=== PATIENT | female | born 1955 | race Caucasian/White ===

== ENCOUNTER 2016-05-16 09:24 | Inpatient (IN) | payer BC, OTHER ==
[2016-05-16] VITALS (21 sets, daily range): BP systolic 82–139; BP diastolic 54–92
[~2016-05-16] VITALS: Ht 157.5 cm; Wt 72.3 kg
--- OUTSIDE RECORDS SUMMARY | 2016-05-16 09:32 | XMS REPORT | Continuity of Care Document ---
Demographics Preferred Language Unknown Marital Status Unknown Shinto Affiliation Unknown Race Unknown Ethnic Group Unknown Author Author [facility] Organization [facility] Address Unknown Phone Unavailable Allergies Active Description Code Type Severity Reaction Onset Reported/Identified Relationship to Patient Clinical Status Yes aspirin 1587 Drug Allergy N/A Nausea Medications Problems Procedures Results Encounters ACCT No. Visit Date/Time Discharge Status Pt. Type Provider Facility Loc./Unit Complaint [id number] 04/20/2015 08:50:00 04/20/2015 13 :45:00 DIS Inpatient DORA BO
[2016-05-16 10:47] LABS: BASOPHILS % (AUTO) 0 % (0-10); EOSINOPHILS # (AUTO) 0.1 10^3/uL (0.0-0.3); EOSINOPHILS % (AUTO) 1 % (0-10); LYMPHOCYTES # (AUTO) 3.1 X 10^3 (1.0-4.0); LYMPHOCYTES % (AUTO) 33 % (12-44); MEAN CORPUSCULAR HEMOGLOBIN 30 PG (25-34); MEAN CORPUSCULAR HGB CONC 33 G/DL (32-36); MEAN CORPUSCULAR VOLUME 93 FL (80-99); MEAN PLATELET VOLUME 11.2 FL (7.4-10.4); MONOCYTES # (AUTO) 0.9 X 10^3 (0.0-1.0); MONOCYTES % (AUTO) 9 % (0-12); NEUTROPHILS # (AUTO) 5.3 X 10^3 (1.8-7.8); NEUTROPHILS % (AUTO) 57 % (42-75); PLATELET COUNT 329 10^3/uL (130-400); RED BLOOD COUNT 3.33 10^6/uL (4.35-5.85); RED CELL DISTRIBUTION WIDTH 14.3 % (10.0-14.5); WHITE BLOOD COUNT 9.4 10^3/uL (4.3-11.0)
--- NOTE | 2016-05-16 10:48 | ED GI ---
General Chief Complaint: Rect Problems Stated Complaint: ABD PAIN/CRAMPING RECTAL BLEEDING Source of Information: Patient, Family History of Present Illness Time Seen By Provider: 10:45 Initial Comments This 60-year-old white female presents with a 4 day history of black and tarry stools now with passing of large blood clots frequently. Patient is having orthostatic symptoms as well. She had a CT done within the last year the results of which were largely unremarkable but the details of which are unclear to the patient. She denies any bleeding abnormality. She denies any new anticoagulants or significant oxur-hyc-irolruq nonsteroidals. Allergies and Home Medications Allergies Coded Allergies: No Known Drug Allergies (Unverified , 05/16/16) Review of Systems Constitutional: No chills, No fever EENTM: No Eye Pain Respiratory: Denies Cough Cardiovascular: Denies Chest Pain Gastrointestinal: Abdominal Pain (mid epigastric abdominal pain) DiarrheaDenies Nausea, Rectal Bleeding (originally black stools now bright red with clots) Genitourinary: No Symptoms Reported Musculoskeletal: No back pain Skin: No rash Psychiatric/Neurological: No Symptoms Reported Endocrine: No Symptoms Reported Hematologic/Lymphatic: No Symptoms Reported Past Qopitmp-Klfdqc-Bpqyst Hx Patient Social History Alcohol Use: Rarely Uses Recreational Drug Use: No Smoking Status: Never a Smoker 2nd Hand Smoke Exposure: No Recent Foreign Travel: No Contact w/Someone Who Travel: No Recent Hopitalizations: No Surgeries HX Surgeries: Yes (EGD AND COLONOSCOPY) Surgeries: Abdominal, Appendectomy, Gallbladder, Hysterectomy, Orthopedic, Tubal Ligation Respiratory Hx Respiratory Disorders: No Cardiovascular Hx Cardiac Disorders: No Neurological Hx Neurological Disorders: No Reproductive System Hx Reproductive Disorders: No Sexually Transmitted Disease: No HIV/AIDS: No Genitourinary Hx Genitourinary Disorders: No Gastrointestinal Hx Gastrointestinal Disorders: No Musculoskeletal Hx Musculoskeletal Disorders: No Endocrine Hx Endocrine Disorders: No HEENT HX ENT Disorders: No Cancer Hx Cancer: No Psychosocial Hx Psychiatric Problems: Yes Behavioral Health Disorders: Anxiety, Depression Blood Transfusions Hx Blood Disorders: No Reviewed Nursing Assessment Reviewed/Agree w Nursing PMH: Yes Physical Exam Vital Signs VS - Last 72 Hours, by Label 05/16/16 10:15 Temp 99.3 Pulse 101 Resp 16 B/P 102/78 Pulse Ox 96 O2 Delivery Room Air Capillary Refill : General Appearance: WD/WN mild distress HEENT: normal ENT inspection Neck: full range of motion normal inspection Respiratory: lungs clear normal breath sounds no respiratory distress Cardiovascular: regular rate, rhythm Gastrointestinal: normal bowel sounds tenderness (there was moderate tenderness in the midepigastric area.) Rectal: other (maroon-colored guaiac-positive stool is noted on rectal exam. No masses were appreciated.) Extremities: normal range of motion non-tender normal inspection Back: normal inspection Neurologic/Psychiatric: no motor/sensory deficits alert normal mood/affect oriented x 3 Skin: normal color warm/dry Progress/Results/Core Measures Results/Orders Lab Results Laboratory Tests Test 05/16/16 10:25 Range/Units Alanine Aminotransferase (ALT/SGPT) 34 0-55 U/L Albumin 3.6 3.2-4.5 G/DL Alkaline Phosphatase 66 40-136 U/L Anion Gap 11 5-14 MMOL/L Aspartate Amino Transf (AST/SGOT) 19 5-34 U/L BUN/Creatinine Ratio 52 Basophils # (Auto) 0.0 0.0-0.1 10^3/uL Basophils (%) (Auto) 0 0-10 % Blood Urea Nitrogen 38 H 7-18 MG/DL Calcium Level 8.5 8.5-10.1 MG/DL Carbon Dioxide Level 20 L 21-32 MMOL/L Chloride Level 112 H 98-107 MMOL/L Creatinine 0.73 0.60-1.30 MG/DL Eosinophils # (Auto) 0.1 0.0-0.3 10^3/uL Eosinophils (%) (Auto) 1 0-10 % Estimat Glomerular Filtration Rate > 60 Glucose Level 83 70-105 MG/DL Hematocrit 31 L 35-52 % Hemoglobin 10.1 L 11.5-16.0 G/DL INR Comment 1.0 0.8-1.4 Lymphocytes # (Auto) 3.1 1.0-4.0 X 10^3 Lymphocytes (%) (Auto) 33 12-44 % Mean Corpuscular Hemoglobin 30 25-34 PG Mean Corpuscular Hemoglobin Concent 33 32-36 G/DL Mean Corpuscular Volume 93 80-99 FL Mean Platelet Volume 11.2 H 7.4-10.4 FL Monocytes # (Auto) 0.9 0.0-1.0 X 10^3 Monocytes (%) (Auto) 9 0-12 % Neutrophils # (Auto) 5.3 1.8-7.8 X 10^3 Neutrophils (%) (Auto) 57 42-75 % Platelet Count 329 130-400 10^3/uL Potassium Level 4.4 3.6-5.0 MMOL/L Prothrombin Time 12.9 12.2-14.7 SEC Red Blood Count 3.33 L 4.35-5.85 10^6/uL Red Cell Distribution Width 14.3 10.0-14.5 % Sodium Level 143 135-145 MMOL/L Total Bilirubin 0.3 0.1-1.0 MG/DL Total Protein 6.1 L 6.4-8.2 G/DL White Blood Count 9.4 4.3-11.0 10^3/uL My Orders Orders-MIGUEL CASTLE MD Cbc With Automated Diff (05/16/16 10:38) Red Cells Leukocytes Reduced (05/16/16 10:38) Comprehensive Metabolic Panel (05/16/16 10:38) Protime With Inr (05/16/16 10:38) Type And Screen (05/16/16 10:38) Ct Abdomen/Pelvis Wo (05/16/16 10:44) Fecal Occult Bedside (05/16/16 10:48) Saline Lock/Iv-Start (05/16/16 11:03) Fentanyl Injection (Sublimaze Injection (05/16/16 11:45) Ondansetron Injection (Zofran Injectio (05/16/16 11:58) Saline Lock/Iv-Start (05/16/16 12:08) Medications Given in ED Current Medications Medications Dose Ordered Sig/Jeni Route Start Time Stop Time Status Last Admin Dose Admin Fentanyl Citrate 50 mcg Q1H PRN IVP 05/16/16 11:45 05/16/16 11:38 50 MCG Ondansetron HCl 4 mg STK-MED ONCE .ROUTE 05/16/16 11:58 05/16/16 11:59 DC 05/16/16 12:00 4 MG Vital Signs/I&O Vital Sign - Last 12Hours 05/16/16 10:15 Temp 99.3 Pulse 101 Resp 16 B/P 102/78 Pulse Ox 96 O2 Delivery Room Air Progress Note : Time: 12:13 Progress Note The patient's CT of the abdomen and pelvis demonstrated diverticulosis with no evidence of acute diverticulitis. Patient had a syncopal episode when she went to have a bloody BM. The patient responded to Trendelenburg positioning. A second IV was established. 2 units of blood have been ordered. 2 units of whole blood been ordered. 2 units have been typed and crossed and reserved. Dr. Hull will see the patient upstairs shortly for probable EGD. Departure Communication Time/Spoke to Admitting Phy: 12:[address] Hull Impression Impression: Primary Impression: GI bleed Qualified Code: K92.1 - Melena Disposition: ADMITTED INPATIENT Condition: Improved Decision to Admit Reason: Admit from ER (General) Decision to Admit/Date: May 16, 2016 Time/Decision to Admit Time: 12:15 Departure-Patient Inst. Referrals: NO,LOCAL PHYSICIAN (PCP/Family) Primary Care Physician MIGUEL CASTLE MD May 16, 2016 10:48
[2016-05-16 10:51] LABS: PROTHROMBIN TIME PATIENT 12.9 SEC (12.2-14.7)
[2016-05-16 10:57] LABS: ALANINE AMINOTRANSFERASE 34 U/L (0-55); ALBUMIN 3.6 G/DL (3.2-4.5); ANION GAP 11 MMOL/L (5-14); ASPARTATE AMINO TRANSFERASE 19 U/L (5-34); BILIRUBIN,TOTAL 0.3 MG/DL (0.1-1.0); BLOOD UREA NITROGEN 38 MG/DL (7-18); BUN/CREATININE RATIO 52; CALCIUM 8.5 MG/DL (8.5-10.1); CARBON DIOXIDE 20 MMOL/L (21-32); CHLORIDE 112 MMOL/L (98-107); CREATININE SERUM 0.73 MG/DL (0.60-1.30); GFR ESTIMATED > 60; GLUCOSE 83 MG/DL (70-105); POTASSIUM 4.4 MMOL/L (3.6-5.0); SODIUM 143 MMOL/L (135-145); TOTAL PROTEIN 6.1 G/DL (6.4-8.2)
--- NOTE | 2016-05-16 11:20 | Diagnostic Imaging Report ---
PROCEDURE: CT abdomen and pelvis without contrast. TECHNIQUE: Multiple contiguous axial images were obtained through the abdomen and pelvis without the use of intravenous contrast. INDICATION: Abdominal pain and cramping. FINDINGS: The lung bases appear clear. The liver demonstrates hypodense lesion in the left hepatic lobe measuring 1.3 cm with attenuation suggestive of a cyst. Cholecystectomy clips are seen. The spleen is not enlarged. Surgical clips along the gastroesophageal junction are seen. The pancreas and adrenal glands appear unremarkable for an unenhanced exam. The kidneys demonstrate no stones or hydronephrosis. No urinary tract stones. Multiple calcifications in the pelvis are compatible with phleboliths. There is suggestion of prior hysterectomy. Multiple sigmoid diverticulosis seen. No evidence of diverticulitis. No bowel obstruction. The appendix is not seen. The abdominal aorta is normal in caliber. No para-aortic significantly enlarged lymph node. There is no significant free fluid or fluid collection in the abdomen or pelvis. There is a small fat-containing direct left inguinal hernia. The osseous structures demonstrate degenerative changes of lower lumbar spine and SI joints. IMPRESSION: 1. Diverticulosis. No diverticulitis. 2. No urinary tract stones or hydronephrosis. Dictated by: Dictated on workstation # [id number]
[2016-05-16] MEDS ORDERED: fentaNYL INJECTION 100 MCG/2 ML AMP IVP PRN (11:45)
[2016-05-16] MEDS ORDERED: ONDANSETRON 4 MG/2 ML (SDV) Z0FRAN ONE (11:58)
[2016-05-16] MEDS ORDERED: LACTATED RINGERS 1,000 ML IV ONE ×2 (12:37→12:38)
--- NOTE | 2016-05-16 13:14 | History & Physicial ---
History of Present Illness History of Present Illness Reason for visit/HPI Charline of one week duration, leading to syncope and an ER visit. Epigastric pain for 2 weeks. Date of Admission May 16, 2016 at 12:50 pm I consulted on this patient on 05/16/16 13:08 Attending Physician Archie Hull MD Admitting Physician No,Local Physician Consult Allergies and Home Medications Allergies Coded Allergies: No Known Drug Allergies (Unverified , 05/16/16) Past Xywkvgq-Ftxrlr-Bnwhdg Hx Patient Social History Marrital Status: Employed/Student: employed Alcohol Use: Rarely Uses Recreational Drug Use: No Smoking Status: Never a Smoker 2nd Hand Smoke Exposure: No Recent Foreign Travel: No Contact w/other who traveled: No Recent Hopitalizations: No Recent Infectious Disease Expo: No Surgeries HX Surgeries: Yes (EGD AND COLONOSCOPY) Surgeries: Abdominal, Appendectomy, Gallbladder, Hysterectomy, Orthopedic, Tubal Ligation Respiratory Hx Respiratory Disorders: No Cardiovascular Hx Cardiovascular Disorders: No Neurological Hx Neurological Disorders: No Reproductive System Hx Reproductive Disorders: No Sexually Transmitted Disease: No HIV/AIDS: No Genitourinary Hx Genitourinary Disorders: No Gastrointestinal Hx Gastrointestinal Disorders: Yes Gastrointestinal Disorders: Gastroesophageal Reflux, Gastrointestinal Bleed, Esophagitis, Hiatal Hernia Musculoskeletal Hx Musculoskeletal Disorders: No Endocrine Hx Endocrine Disorders: No HEENT HX ENT Disorders: No Cancer Hx Cancer: No Psychosocial Hx Psychiatric Problems: Yes Behavioral Health Disorders: Anxiety, Depression Integumentary HX Skin/Integumentary Disorder: No Blood Transfusions Hx Blood Disorders: No Reviewed Nursing Assessment Reviewed/Agree w Nursing PMH: Yes Constitutional: dizziness malaise weakness EENTM: no symptoms reported Respiratory: no symptoms reported Cardiovascular: palpitations syncope Gastrointestinal: abdominal pain (RUQ) heartburn melena nausea Genitourinary: no symptoms reported : No Skin: no symptoms reported Psychiatric/Neurological: Anxiety Physical Exam Vital Signs Vital Sign - Last 12Hours 05/16/16 10:15 Temp 99.3 Pulse 101 Resp 16 B/P 102/78 Pulse Ox 96 O2 Delivery Room Air Capillary Refill : Less Than 3 Seconds General Appearance: Anxious HEENT: TMs Normal Neck: Normal Inspection Respiratory: Lungs Clear Cardiovascular: No Murmur Tachycardia Gastrointestinal: No Pulsatile Mass Soft Tenderness Rectal: Deferred Back: Normal Inspection Extremity: Normal Capillary Refill Neurologic/Psychiatric: Alert Oriented x3 Skin: Pallor Comments Epigastric tenderness. Laparoscopic scars with no hernia Assessment/Plan Assessment and Plan Upper GI bleeding with hemodynamic compromise. Therapeutic endoscopy this pm and transfuse as needed. Admission Diagnosis Upper GI bleeding Clinical Quality Measures DVT/VTE Risk/Contraindication: VTE Present on Admission: ARCHIE Chamberlain MD May 16, 2016 1:14 pm
--- NOTE | 2016-05-16 13:21 | Pre-Op Note & Conscious Sedat ---
Pre-Operative Progress Note H&P Reviewed The H&P was reviewed, patient examined and no changes noted. Date H&P Reviewed: May 16, 2016 Time H&P Reviewed: 13:21 Pre-Op Diagnosis: Upper GI Bleeding Conscious Sedation Pre-Proced ASA Class: 3 Airway Mallampati Classification: (tunica-biloxi appropriate class) I. II. III, IV Lungs Heart ASA score ASA 1: a normal healthy patient ASA 2: a patient with a mild systemic disease (mid diabetes, controlled hypertension, obesity ASA 3: a patient with a severe systemic disease that limits activity (angina , COPD, prior Myocardial infarction) ASA 4: a patient with an incapacitating disease that is a constant threat to life (CHF, renal failure) ASA 5: a moribund patient not expected to survive 24 hrs. (ruptured aneurysm) ASA 6: a declared brain patient whose organs are being harvested. For emergent operations, add the letter E after the classification Grade 2 Sedation Plan: Discussed options with patient/fam Note The patient is an appropriate candidate to undergo the planned procedure, sedation, and anesthesia. The patient immediately re-assessed prior to indication. ARCHIE KIM MD May 16, 2016 1:21 pm
[2016-05-16] MEDS ORDERED: ONDANSETRON 4 MG/2 ML (SDV) Z0FRAN IV PRN (13:30)
[2016-05-16] MEDS: NS IV 1000 ML 1,000 ML IV SCH ×2 (13:34→23:19)
[2016-05-16] MEDS ORDERED: CATHETER FLUSH 10 ML SYR IV PRN (14:00)
[2016-05-16] MEDS: PANTOPRAZOLE INJECTION 200 MG in NS (IVPB) 50 ML IV SCH (14:22)
[2016-05-16] MEDS ORDERED: EPINEPHrine INJECTION 1 MG/ML AMP ONE (15:11)
[2016-05-16] MEDS ORDERED: MIDAZOLAM 2 MG/2 ML (VERSED) VIAL ONE ×2 (15:19→15:32)
[2016-05-16] MEDS ORDERED: NS IV 500 ML 500 ML ONE (15:19)
[2016-05-16] MEDS: fentaNYL INJECTION 100 MCG/2 ML AMP IV PRN ×3 (15:22→21:13)
[2016-05-16] MEDS: MIDAZOLAM 10 MG/2 ML (VERSED) VIAL IVP PRN ×5 (15:32→15:48)
[2016-05-16] MEDS ORDERED: FLU TRIvalent (5 YOA+) 2016-17 (AFLURIA) 0.5 ML IM ONE (15:45)
--- NOTE | 2016-05-16 16:04 | Progress Note-Post Operative ---
Post-Operative Progess Note Pre-Operative Diagnosis Upper GI Bleeding Post-Operative Diagnosis normal esophagus with no varices. Clots at the gastric fundus obscuring the view of the mucosa. Flecks of blood along the gastric body with no definitive source of bleeding Acute ulcer at the duodenal bulb with clot at the base. Multiple erosions involving the first and second part of duodenum with oozing Post-Op Procedure Note Date of Procedure: May 16, 2016 Name of Procedure: EGD with sclerotherapy Anesthesia Type sedation ARCHIE KIM MD May 16, 2016 4:04 pm
[2016-05-16] MEDS ORDERED: MAGNESIUM CITRATE 300 ML BTL PO NR (16:15)
--- NOTE | 2016-05-16 16:41 | Diagnostic Imaging Report ---
INDICATION: Nasogastric tube placement. FINDINGS: Upright view of the chest demonstrates a nasogastric tube with its tip near the pylorus. Lungs are clear. The heart and vascularity are normal. IMPRESSION: Nasogastric tube was placed with its tip near the pylorus. Dictated by: Dictated on workstation # [id number]
[2016-05-16] MEDS: METOCLOPRAMIDE INJ 10 MG/2 ML (REGLAN) IVP SCH ×2 (17:35→23:33)
[2016-05-16] MEDS ORDERED: HURRICAINE EXT TUBE (BENZOCAINE) XX ONE (19:00)
[2016-05-17] VITALS (24 sets, daily range): BP systolic 86–126; BP diastolic 53–88
[2016-05-17] MEDS: fentaNYL INJECTION 100 MCG/2 ML AMP IV PRN (00:15)
[2016-05-17] MEDS ORDERED: HYDROmorphone (DILAUDID) 2 MG/ML VIAL ONE (02:35)
[2016-05-17] MEDS ORDERED: HYDROmorphone (DILAUDID) 2 MG/ML VIAL IVP PRN (02:45)
[2016-05-17 04:50] LABS: BASOPHILS % (AUTO) 0 % (0-10); EOSINOPHILS % (AUTO) 1 % (0-10); LYMPHOCYTES # (AUTO) 3.1 X 10^3 (1.0-4.0); LYMPHOCYTES % (AUTO) 36 % (12-44); MEAN CORPUSCULAR HEMOGLOBIN 30 PG (25-34); MEAN CORPUSCULAR HGB CONC 34 G/DL (32-36); MEAN CORPUSCULAR VOLUME 91 FL (80-99); MEAN PLATELET VOLUME 11.3 FL (7.4-10.4); MONOCYTES # (AUTO) 0.6 X 10^3 (0.0-1.0); MONOCYTES % (AUTO) 7 % (0-12); NEUTROPHILS # (AUTO) 4.8 X 10^3 (1.8-7.8); NEUTROPHILS % (AUTO) 56 % (42-75); PLATELET COUNT 213 10^3/uL (130-400); RED BLOOD COUNT 4.18 10^6/uL (4.35-5.85); RED CELL DISTRIBUTION WIDTH 14.8 % (10.0-14.5); WHITE BLOOD COUNT 8.5 10^3/uL (4.3-11.0)
[2016-05-17] MEDS: HYDROmorphone (DILAUDID) 2 MG/ML VIAL IVP PRN ×2 (05:07→10:00)
[2016-05-17] MEDS: METOCLOPRAMIDE INJ 10 MG/2 ML (REGLAN) IVP SCH ×3 (05:10→17:34)
[2016-05-17 05:20] LABS: ALANINE AMINOTRANSFERASE 24 U/L (0-55); ANION GAP 8 MMOL/L (5-14); ASPARTATE AMINO TRANSFERASE 19 U/L (5-34); BILIRUBIN,TOTAL 0.6 MG/DL (0.1-1.0); BLOOD UREA NITROGEN 31 MG/DL (7-18); BUN/CREATININE RATIO 41; CALCIUM 7.7 MG/DL (8.5-10.1); CARBON DIOXIDE 20 MMOL/L (21-32); CHLORIDE 113 MMOL/L (98-107); CREATININE SERUM 0.75 MG/DL (0.60-1.30); GFR ESTIMATED > 60; GLUCOSE 94 MG/DL (70-105); MAGNESIUM 2.5 MG/DL (1.8-2.4); PHOSPHORUS 2.7 MG/DL (2.3-4.7); POTASSIUM 4.1 MMOL/L (3.6-5.0); SODIUM 141 MMOL/L (135-145); TOTAL PROTEIN 5.1 G/DL (6.4-8.2)
[2016-05-17] MEDS: NS IV 1000 ML 1,000 ML IV SCH ×2 (08:06→18:50)
--- NOTE | 2016-05-17 09:43 | Diagnostic Imaging Report ---
EXAMINATION: Chest radiograph, portable AP view. DATE: May 17, 2016 at 0444 hours. INDICATION: 60-year-old female, history of gastrointestinal bleed. COMPARISON: May 16, 2016. FINDINGS: The nasogastric tube extends below the wpfcb-gv-acdx. The heart size and mediastinal contours are unchanged. There is no identified pneumothorax. There is no large pleural effusion. There is no identified focal airspace consolidation. IMPRESSION: 1. No identified acute cardiopulmonary abnormality. 2. Nasogastric tube extends below the oytnc-wk-ynan. Dictated by: Dictated on workstation # [id number]
[2016-05-17] MEDS ORDERED: EPINEPHrine INJECTION 1 MG/ML AMP ONE (10:09)
[2016-05-17] MEDS: PANTOPRAZOLE INJECTION 200 MG in NS (IVPB) 50 ML IV SCH (10:18)
[2016-05-17] MEDS ORDERED: NS IV 500 ML 0 ML ONE (10:44)
[2016-05-17] MEDS ORDERED: proPOfol 200 MG/20 ML (DIPRIVAN) VIAL IV ONE ×2 (11:21→11:34)
[2016-05-17] MEDS ORDERED: MIDAZOLAM 2 MG/2 ML (VERSED) VIAL ONE (11:21)
--- NOTE | 2016-05-17 11:39 | Progress Note-Post Operative ---
Post-Operative Progess Note Pre-Operative Diagnosis Upper GI Bleeding Post-Operative Diagnosis NONBLEEDING PROXIMAL GASTRIC ULCER. lINEAR ULCERS AT THE FUNDUS OF THE STOMACH. nONBLEEDING av MALFORMATIONS. nONBLEEDING DUODENAL EROSIONS WITH RESPONSE TO SCLEROTHERAPY Post-Op Procedure Note Date of Procedure: May 17, 2016 Name of Procedure: EGD with ANTRAL BIOPSY Anesthesia Type conscious sedation Specimen(s) collected antral mucosa ARCHIE KIM MD May 17, 2016 11:39 am
--- NOTE | 2016-05-17 11:41 | Progress Note-Pre Operative ---
Pre-Operative Progress Note H&P Reviewed The H&P was reviewed, patient examined and no changes noted. Date H&P Reviewed: May 17, 2016 Time H&P Reviewed: 09:36 Pre-Operative Diagnosis: upper GI bleeding ARCHIE KIM MD May 17, 2016 11:40 am
[2016-05-17] MEDS ORDERED: MAGNESIUM CITRATE 300 ML BTL PO ONE (11:45)
--- NOTE | 2016-05-17 12:00 | Progress Note-Standard ---
Standard Progress Note Final Diagnosis Consulted for sedation for EGD in ICU per Dr. Hull. Discussed sedation with pt, verbal consent and medicall history obtained. Versed 2 mg IV, propofol 40 mg IV. Tolerated procedure well, VSS, report to Daniela MANTILLA care assumed. ADOLPH BOURGEOIS CRNA May 17, 2016 12:00
[2016-05-17] MEDS: SUCRALFATE 1 GM (CARAFATE) TAB PO SCH ×2 (12:29→21:14)
[2016-05-17] MEDS: HYDROcodone/APAP 5 MG/325 MG (LORTAB) TAB PO PRN ×2 (14:49→21:14)
[2016-05-17] MEDS: ALPRAZolam 1 MG (XANAX) TAB PO SCH (21:14)
--- NOTE | 2016-05-17 23:35 | PROCEDURE REPORT ---
PROCEDURE PHYSICIAN: ARCHIE KIM DATE OF PROCEDURE: 05/16/2016 PROCEDURE: 1. Upper GI endoscopy. 2. Sclerotherapy. SURGEON: Dr. Kim. INDICATION FOR THE PROCEDURE: This lady has been admitted with what appears to be upper GI bleeding with acute anemia, requiring blood transfusion. She was offered therapeutic endoscopy. Informed consent was obtained after reviewing the procedure in detail. DESCRIPTION OF PROCEDURE: She was monitored in the Intensive Care Unit and conscious sedation achieved using Versed and fentanyl. The flexible gastroscope was introduced down the esophagus, past the stomach, into the proximal duodenum. FINDINGS: ESOPHAGUS: Normal without any varices. STOMACH: A lot of blood clots in the fundus obscuring the view of the mucosa. The rest of the stomach showed flecks of blood without any definitive source of bleeding being identified. DUODENUM: 1. Acute ulcer at the bulb with a clotted at the base. Sclerotherapy was achieved using 1:10,000 epinephrine solution. 2. Multiple shallow erosions with oozing involving the first and second parts of the duodenum. Sclerotherapy was repeated on each of these areas. She tolerated the procedure reasonably well. IMPRESSION: Upper GI bleeding. A combination of an acute ulcer and multiple erosions. Sclerotherapy completed. The fundus of the stomach could not be visualized and therefore she will undergo nasogastric decompression, lavage, followed by a follow-up endoscopy in 24 hours. Job ID: [id number] Dictated Date: 05/16/2016 16:02:10 Top Edge Beveler Date: 05/17/2016 23:30:43 / bridger URRUTIA
--- NOTE | 2016-05-17 23:43 | PROCEDURE REPORT ---
PROCEDURE PHYSICIAN: ARCHIE KIM DATE OF PROCEDURE: 05/17/2016 PROCEDURE: Upper GI endoscopy with antral biopsy. SURGEON: Dr. Kim. INDICATION FOR THE PROCEDURE: This lady has been admitted with upper GI bleeding. Immediately after her admission, therapeutic endoscopy with sclerotherapy was performed. Multiple duodenal erosions with oozing and an acute ulcer at the duodenal bulb with an adherent blood clot were encountered. She has remained stable and blood transfusion has been completed. A follow-up endoscopy was felt to be reasonable. Informed consent was obtained after reviewing the procedure in detail. DESCRIPTION OF PROCEDURE: She was monitored in the Intensive Care Unit and conscious sedation was achieved using propofol infusion by our JIG MILL OPERATOR. The flexible gastroscope was introduced down the esophagus, past the stomach, into the proximal duodenum. FINDINGS: ESOPHAGUS: Grade 1 esophagitis without any varices. STOMACH: 1. No blood clots were identified. 2. A chronic ulcer about 5 mm in size, along the proximal gastric curvature with evidence of recent bleeding. 3. Multiple linear ulcers along the fundus. There was no bleeding. 4. 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 An antral biopsy was obtained for Helicobacter status. DUODENUM: The erosions noticed on 05/16/2016 were observed. There was no oozing and there was adequate response to sclerotherapy. She tolerated the procedure reasonably well. IMPRESSION: 1. Upper GI bleeding due to multiple duodenal erosions and duodenal ulcer. 2. Chronic gastric ulcer. No active bleeding noticed. 3. We will continue medical treatment. Job ID: [id number] Dictated Date: 05/17/2016 11:37:28 Extension Worker Date: 05/17/2016 23:38:38 / bridger URRUTIA
[2016-05-18] VITALS (13 sets, daily range): BP systolic 85–154; BP diastolic 54–93
[2016-05-18] MEDS: HYDROcodone/APAP 5 MG/325 MG (LORTAB) TAB PO PRN ×3 (03:14→17:48)
[2016-05-18 03:59] LABS: BASOPHILS % (AUTO) 0 % (0-10); EOSINOPHILS # (AUTO) 0.2 10^3/uL (0.0-0.3); EOSINOPHILS % (AUTO) 3 % (0-10); LYMPHOCYTES # (AUTO) 2.4 X 10^3 (1.0-4.0); LYMPHOCYTES % (AUTO) 48 % (12-44); MEAN CORPUSCULAR HEMOGLOBIN 30 PG (25-34); MEAN CORPUSCULAR HGB CONC 33 G/DL (32-36); MEAN CORPUSCULAR VOLUME 92 FL (80-99); MEAN PLATELET VOLUME 11.2 FL (7.4-10.4); MONOCYTES # (AUTO) 0.3 X 10^3 (0.0-1.0); MONOCYTES % (AUTO) 7 % (0-12); NEUTROPHILS # (AUTO) 2.1 X 10^3 (1.8-7.8); NEUTROPHILS % (AUTO) 42 % (42-75); PLATELET COUNT 188 10^3/uL (130-400); RED BLOOD COUNT 3.59 10^6/uL (4.35-5.85); RED CELL DISTRIBUTION WIDTH 14.8 % (10.0-14.5)
[2016-05-18] MEDS: NS IV 1000 ML 1,000 ML IV SCH (04:23)
[2016-05-18 04:36] LABS: ANION GAP 8 MMOL/L (5-14); BLOOD UREA NITROGEN 16 MG/DL (7-18); BUN/CREATININE RATIO 23; CALCIUM 7.7 MG/DL (8.5-10.1); CARBON DIOXIDE 23 MMOL/L (21-32); CHLORIDE 111 MMOL/L (98-107); CREATININE SERUM 0.69 MG/DL (0.60-1.30); GFR ESTIMATED > 60; GLUCOSE 77 MG/DL (70-105); MAGNESIUM 2.4 MG/DL (1.8-2.4); PHOSPHORUS 2.9 MG/DL (2.3-4.7); SODIUM 142 MMOL/L (135-145)
[2016-05-18] MEDS: METOCLOPRAMIDE INJ 10 MG/2 ML (REGLAN) IVP SCH ×3 (06:10→12:06)
[2016-05-18] MEDS: SUCRALFATE 1 GM (CARAFATE) TAB PO SCH ×3 (08:29→20:56)
--- NOTE | 2016-05-18 12:24 | Progress Note (SOAP) ---
Subjective Subjective/Events-last exam no more bleeding episodes. Hemodynamically stable. Tolerating a regular diet Review of Systems General: No Chills, No Night Sweats, No Fatigue, No Malaise HEENT: No Head Aches, No Eye Pain, No Ear Pain, No Dysphasia, No Sinus Congestion, No Post Nasal Drip, No Sore Throat Pulmonary: No Dyspnea, No Cough, No Pleuritic Chest Pain Cardiovascular: No: Chest Pain, Edema, Lt Headedness, Orthopnea, Palpitations, Paroxysmal Noc. Dyspnea Gastrointestinal: No: Abdominal Pain, Constipation, Diarrhea, Hematochezia, Melena, Nausea, Vomiting Musculoskeletal: No: arm pain, back pain, foot pain, hand pain, leg pain, neck pain, other, shoulder pain Neurological: No: Change in speech, Confusion, Incoordination, Numbness, Other , Seizures, Weakness Objective Exam Vital Signs Date Time Temp Pulse Resp B/P Pulse Ox O2 Delivery O2 Flow Rate FiO2 05/18/16 11:17 96 05/18/16 08:00 96 05/18/16 07:00 66 05/18/16 06:00 71 16 88/55 92 Room Air 05/18/16 05:00 78 25 107/82 93 Room Air 05/18/16 04:00 70 20 94/55 97 Room Air 05/18/16 03:15 98 05/18/16 03:00 72 13 109/67 98 Room Air 05/18/16 02:00 70 11 95/54 94 Room Air 05/18/16 01:00 64 05/18/16 01:00 67 10 93/65 94 Room Air 05/18/16 00:00 98.6 78 20 88/56 95 Room Air 05/18/16 00:00 97 05/17/16 23:00 73 12 86/53 94 Room Air 05/17/16 22:00 70 11 97/66 97 Room Air 05/17/16 21:00 73 12 122/75 97 Room Air 05/17/16 19:25 96 05/17/16 19:00 98.4 82 13 104/67 96 Room Air 05/17/16 19:00 80 05/17/16 18:00 75 12 106/76 94 Room Air 05/17/16 17:38 85 15 122/79 96 Room Air 05/17/16 16:00 98 05/17/16 16:00 73 14 99/64 93 Room Air 05/17/16 15:00 76 11 100/58 96 Room Air 05/17/16 14:00 74 12 119/72 94 Room Air 05/17/16 13:00 79 17 113/76 92 Room Air 05/17/16 13:00 80 I & O 05/18/16 07:00 Intake Total 2845 ml Output Total 3775 ml Balance -930 ml Capillary Refill : Less Than 3 Seconds General Appearance: Anxious HEENT: TMs Normal Neck: Normal Inspection Respiratory: Lungs Clear Cardiovascular: Regular Rate, Rhythm Gastrointestinal: non tender soft Extremity: Normal Inspection Neurologic/Psychiatric: Alert Oriented x3 Skin: Warm/Dry Results Lab Laboratory Tests 05/18/16 03:30: Anion Gap 8, BUN/Creatinine Ratio 23, Basophils # (Auto) 0.0, Basophils (%) ( Auto) 0, Blood Urea Nitrogen 16, Calcium Level 7.7L, Carbon Dioxide Level 23, Chloride Level 111H, Creatinine 0.69, Eosinophils # (Auto) 0.2, Eosinophils (%) (Auto) 3, Estimat Glomerular Filtration Rate > 60, Glucose Level 77, Hematocrit 33L, Hemoglobin 10.9L, Lymphocytes # (Auto) 2.4, Lymphocytes (%) (Auto) 48H, Magnesium Level 2.4, Mean Corpuscular Hemoglobin 30, Mean Corpuscular Hemoglobin Concent 33, Mean Corpuscular Volume 92, Mean Platelet Volume 11.2H, Monocytes # (Auto) 0.3, Monocytes (%) (Auto) 7, Neutrophils # (Auto) 2.1, Neutrophils (%) (Auto) 42, Phosphorus Level 2.9, Platelet Count 188, Potassium Level 4.0, Red Blood Count 3.59L, Red Cell Distribution Width 14.8H, Sodium Level 142, White Blood Count 5.0 Assessment/Plan Assessment/Plan Assess & Plan/Chief Complaint uupper GI bleeding, successful endoscopic sclerotherapy. Will be switched to oral proton pump inhibitor therapy and transferred to the floor Final Diagnosis upper GI bleeding Clinical Quality Measures DVT/VTE Risk/Contraindication: VTE Present on Admission: No Risk Factor Score Per Nursin RFS Level Per Nursing on Admit: 1=Low/No VTE PPX ARCHIE KIM MD May 18, 2016 12:24 pm
[2016-05-18] MEDS: PANTOPRAZOLE 40 MG (PROTONIX) TAB PO SCH (20:57)
[2016-05-18] MEDS: ALPRAZolam 1 MG (XANAX) TAB PO SCH (20:57)
[2016-05-19] VITALS: BP 108/65
[2016-05-19 04:00] VITALS: BP 117/74
[2016-05-19 05:19] LABS: BASOPHILS % (AUTO) 1 % (0-10); EOSINOPHILS # (AUTO) 0.1 10^3/uL (0.0-0.3); EOSINOPHILS % (AUTO) 3 % (0-10); LYMPHOCYTES # (AUTO) 2.1 X 10^3 (1.0-4.0); LYMPHOCYTES % (AUTO) 49 % (12-44); MEAN CORPUSCULAR HEMOGLOBIN 31 PG (25-34); MEAN CORPUSCULAR HGB CONC 33 G/DL (32-36); MEAN CORPUSCULAR VOLUME 92 FL (80-99); MEAN PLATELET VOLUME 10.6 FL (7.4-10.4); MONOCYTES # (AUTO) 0.3 X 10^3 (0.0-1.0); MONOCYTES % (AUTO) 8 % (0-12); NEUTROPHILS # (AUTO) 1.7 X 10^3 (1.8-7.8); NEUTROPHILS % (AUTO) 40 % (42-75); PLATELET COUNT 219 10^3/uL (130-400); RED BLOOD COUNT 3.67 10^6/uL (4.35-5.85); RED CELL DISTRIBUTION WIDTH 14.4 % (10.0-14.5); WHITE BLOOD COUNT 4.3 10^3/uL (4.3-11.0)
[2016-05-19 08:00] VITALS: BP 147/86
[2016-05-19] MEDS: PANTOPRAZOLE 40 MG (PROTONIX) TAB PO SCH (08:50)
[2016-05-19] MEDS: HYDROcodone/APAP 5 MG/325 MG (LORTAB) TAB PO PRN (08:50)
[2016-05-19] MEDS: SUCRALFATE 1 GM (CARAFATE) TAB PO SCH ×2 (08:50→10:56)
[2016-05-19] MEDS ORDERED: ALPR1TAB7 PO ×2 (11:05)
[2016-05-19] MEDS ORDERED: NAPR500T3 PO (11:05)
[2016-05-19 12:00] VITALS: BP 125/78
[2016-05-19] MEDS ORDERED: PANT40TA2 PO (13:25)
--- NOTE | 2016-05-19 15:28 | Progress Note (SOAP) ---
Subjective Subjective/Events-last exam tolerating diet. Hemodynamically stable. No more hematemesis or melena. Review of Systems General: No Chills, No Night Sweats, No Fatigue, No Malaise HEENT: No Head Aches, No Eye Pain, No Ear Pain, No Dysphasia, No Sinus Congestion, No Post Nasal Drip, No Sore Throat Pulmonary: No Dyspnea, No Cough, No Pleuritic Chest Pain Cardiovascular: No: Chest Pain, Edema, Lt Headedness, Orthopnea, Palpitations, Paroxysmal Noc. Dyspnea Gastrointestinal: No: Abdominal Pain, Constipation, Diarrhea, Hematochezia, Melena, Nausea, Other, Vomiting Neurological: No: Change in speech, Confusion, Incoordination, Numbness, Other , Seizures, Weakness Objective Exam Vital Signs Date Time Temp Pulse Resp B/P Pulse Ox O2 Delivery O2 Flow Rate FiO2 05/19/16 14:55 05/19/16 12:00 97.2 78 20 125/78 97 Room Air 05/19/16 08:00 96.5 73 20 147/86 100 Room Air 05/19/16 04:00 96.6 63 18 117/74 98 Room Air 05/19/16 00:00 97.8 73 18 108/65 97 Room Air 05/18/16 21:00 Room Air 05/18/16 20:04 98.3 76 20 154/93 99 Room Air 05/18/16 17:26 Room Air 05/18/16 16:00 97.1 84 20 152/71 99 Room Air I & O 05/19/16 07:00 Intake Total 2355 ml Output Total 1800 ml Balance 555 ml Capillary Refill : Less Than 3 SecondsLess Than 3 Seconds General Appearance: Anxious Neck: Normal Inspection Respiratory: Lungs Clear Cardiovascular: Regular Rate, Rhythm Gastrointestinal: soft Extremity: Normal Capillary Refill Skin: Warm/Dry Results Lab Laboratory Tests 05/19/16 04:40: Basophils # (Auto) 0.0, Basophils (%) (Auto) 1, Eosinophils # (Auto) 0.1, Eosinophils (%) (Auto) 3, Hematocrit 34L, Hemoglobin 11.2L, Lymphocytes # (Auto ) 2.1, Lymphocytes (%) (Auto) 49H, Mean Corpuscular Hemoglobin 31, Mean Corpuscular Hemoglobin Concent 33, Mean Corpuscular Volume 92, Mean Platelet Volume 10.6H, Monocytes # (Auto) 0.3, Monocytes (%) (Auto) 8, Neutrophils # ( Auto) 1.7L, Neutrophils (%) (Auto) 40L, Platelet Count 219, Red Blood Count 3.67L, Red Cell Distribution Width 14.4, White Blood Count 4.3 Assessment/Plan Assessment/Plan Assess & Plan/Chief Complaint uupper GI bleeding, successful endoscopic sclerotherapy. Will be switched to oral proton pump inhibitor therapy and transferred to the floor 05/19/16:stable. We will be discharged on twice a day Protonix. Short-term follow-up and a follow-up endoscopy in a month Final Diagnosis upper GI bleeding Clinical Quality Measures DVT/VTE Risk/Contraindication: VTE Present on Admission: No Risk Factor Score Per Nursin RFS Level Per Nursing on Admit: 1=Low/No VTE PPX ARCHIE KIM MD May 19, 2016 3:28 pm
--- NOTE | 2016-05-20 13:27 | DISCHARGE SUMMARY ---
DATE OF ADMISSION: 05/16/2016 DATE OF DISCHARGE: 05/19/2016 DIAGNOSIS: Upper GI bleeding with acute anemia. This lady presented with acute anemia due to multiple bleeding ulcers and erosions in the duodenum and the stomach. These were managed by endoscopic sclerotherapy and she has since remained stable. Proton pump Inhibitors have been prescribed with instructions to avoid nonsteroidals and aspirin. She will be followed up in my office in 10 days. Job ID: [id number] Dictated Date: 05/19/2016 14:19:36 Developer Relations Manager Date: 05/20/2016 13:24:40/bharti URRUTIA
== END 2016-05-19 14:55 | disposition home or self-care (01) | DRG 378 ==
LOC: EDUNIT# 09:24 → ER 09:28 → ICU 12:50 → 4TH 05-18 17:05
PROVIDERS: ADMIT Surgery; ATTEND Surgery
PROC: 0D598ZZ Destruction of Duodenum, Via Natural or Artificial Opening Endoscopic (ICD-10-PCS; principal; 2016-05-16 15:30)
PROC: 0DB68ZZ Excision of Stomach, Via Natural or Artificial Opening Endoscopic (ICD-10-PCS; 2016-05-17)
DX: K26.0 Acute duodenal ulcer with hemorrhage (principal); D62 Acute posthemorrhagic anemia; K25.7 Chronic gastric ulcer without hemorrhage or perforation; K20.9 Esophagitis, unspecified; K21.9 Gastro-esophageal reflux disease without esophagitis; F41.9 Anxiety disorder, unspecified; F32.9 Major depressive disorder, single episode, unspecified
CPT/HCPCS: 36415; 71010; 74176; 80048; 80053; 83735; 84100; 85014; 85018; 85025; 85610; 86850; 86900; 86901; 86920; 88305; 88342; 93005; 96374; 96375

== ENCOUNTER 2016-05-23 07:14 | Outpatient (CLI) | payer BC ==
[~2016-05-23] VITALS: Ht 157.5 cm; Wt 72.3 kg
[~2016-05-23 07:14] MED LIST: ALPR1TAB7 PO; NAPR500T3 PO; PANT40TA2 PO
--- OUTSIDE RECORDS SUMMARY | 2016-05-23 07:18 | XMS REPORT | Continuity of Care Document ---
Demographics Preferred Language Unknown Marital Status Unknown Hinduism Affiliation Unknown Race Unknown Ethnic Group Unknown Author Author [facility] Organization [facility] Address Unknown Phone Unavailable Allergies Active Description Code Type Severity Reaction Onset Reported/Identified Relationship to Patient Clinical Status Yes aspirin 1587 Drug Allergy N/A Nausea Medications Problems Procedures Results Encounters ACCT No. Visit Date/Time Discharge Status Pt. Type Provider Facility Loc./Unit Complaint [id number] 04/20/2015 08:50:00 04/20/2015 13 :45:00 DIS Inpatient DORA BO [facility] OPS
[2016-05-23] MEDS ORDERED: LEVO50TA6 PO (10:41)
== END 2016-05-23 10:55 ==
LOC: PREOP 07:14
PROVIDERS: ATTEND Surgery
DX: Z01.818 Encounter for other preprocedural examination (principal); R19.5 Other fecal abnormalities

== ENCOUNTER → 2016-05-26 | Day surgery (SDC) | payer BC ==
[~2016-05-26] VITALS: Ht 157.5 cm; Wt 72.3 kg
[2016-05-26] VITALS (10 sets, daily range): BP systolic 111–149; BP diastolic 66–91
[~2016-05-26] MED LIST changes: +EPINEPHrine INJECTION 1 MG/ML AMP ONE; +FLUMAZENIL (ROMAZICON) 0.1 MG/ML 5 ML VIAL INJ PRN; +HURRICAINE EXT TUBE (BENZOCAINE) XX PRN; +LEVO50TA6 PO; +MIDAZOLAM 2 MG/2 ML (VERSED) VIAL IVP PRN; +MIDAZOLAM 2 MG/2 ML (VERSED) VIAL ONE; +NALOXONE 0.4 MG/ML 1 ML (NARCAN) VIAL IVP PRN; +NS IV 1000 ML 1,000 ML IV PRN; +NS IV 500 ML 500 ML IV PRN; +NS IV 500 ML 500 ML ONE; +fentaNYL INJECTION 100 MCG/2 ML AMP IVP PRN; +proPOfol 200 MG/20 ML (DIPRIVAN) VIAL IV ONE
--- OUTSIDE RECORDS SUMMARY | 2016-05-26 10:55 | XMS REPORT | Continuity of Care Document ---
Author Author [facility] Organization [facility] Address Unknown Phone Unavailable Care Team Providers Care Broach Setter Name Role Phone NO, LOCAL PHYSICIAN PCP Unavailable Insurance Providers Payer Name Policy Number Subscriber Name Relationship [facility] [id number] Temi Moran 19 Self / Same As Patient Advance Directives Directive Response Recorded Date/Time Advance Directives No 05/23/16 10:36am Resuscitation Status Full Code 05/23/16 10:36am Problems Active Problems Medical Problem Onset Date Status GI bleed Unknown Acute Medications Current Home Medications Medication Dose Units Route Directions Days/Qty Instructions Start Date Alprazolam 1 Mg 0.5 Mg Oral Daily take 1/2 of 1mg tab 05/19/16 Alprazolam 1 Mg 2.5 Mg Oral Bedtime TAKES 2 & 1/2 OF (1 MG) TABLETS Naproxen 500 Mg 500 Mg Oral Twice A Day as needed for Pain TAKES FOR INFLAMMATION 05/19/16 Pantoprazole Sodium 40 Mg 40 Mg Oral Twice A Day 60 05/19/16 Levothyroxine Sodium 50 Mcg 50 Mcg Oral Daily 05/23/16 Social History Social History Problem Response Recorded Date/Time Alcohol Use Rarely Uses 05/23/2016 10:36am Recreational Drug Use No 05/23/2016 10:36am Recent Foreign Travel No 05/23/2016 10:36am Recent Infectious Disease Exposure No 05/23/2016 10:36am Sexually Transmitted Disease No 05/23/2016 10:36am HIV/AIDS No 05/23/2016 10:36am Smoking Status Never a Smoker 05/23/2016 10:36am Recent Hopitalizations No 05/23/2016 10:36am Sexually Transmitted Disease No 05/23/2016 10:36am Query Response Start Date Stop Date Smoking Status Never a Smoker Hospital Discharge Instructions No hospital discharge instructions. Plan of Care Discharge Date 05/23/16 10:55am Prescriptions See Medication Section Functional Status No functional status results. Allergies, Adverse Reactions, Alerts No known allergies. Immunizations Name Given Type FLU TRIvalent 5 years - Adult 05/17/16 Administered Vital Signs Acute Vital Signs Vital Response Date/Time Temperature (Fahrenheit) 97.2 degrees F (97.6 - 99.5) 05/19/2016 12:00pm Temperature (Calculated Celsius) 36.73870 degrees C (36.4 - 37.5) 05/19/2016 12:00pm Temperature Source Tympanic 05/19/2016 12:00pm Pulse Rate (adult) 78 bpm (60 - 90) 05/19/2016 12:00pm Respiratory Rate 20 bpm (12 - 24) 05/19/2016 12:00pm O2 Sat by Pulse Oximetry 97 % (88 - 100) 05/19/2016 12:00pm Blood Pressure 125/78 mm Hg 05/19/2016 12:00pm Blood Pressure Mean 94 mm Hg 05/19/2016 12:00pm Pain Numeric Pain Scale 0-No Pain 05/19/2016 12:00pm Pain Numeric Pain Scale 5-Moderate Pain 05/19/2016 12:00pm Height (Feet) 5 feet 05/23/2016 10:36am Height (Inches) 2.00 inches 05/23/2016 10:36am Height (Calculated Centimeters) 157.309267 cm 05/23/2016 10:36am Weight (Pounds) 159 pounds 05/23/2016 10:36am Weight (Ounces) 8.0 oz 05/23/2016 10:36am Weight (Calculated Grams) 38283.98 gm 05/23/2016 10:36am Weight (Calculated Kilograms) 72.250948 kilograms 05/23/2016 10:36am Calculated BMI 29.2 05/23/2016 10:36am Capillary Refill Capillary Refill Less Than 3 Seconds 05/18/2016 9:00pm Results Laboratory Results Test Name Result Units Flags Reference Collection Date/Time Result Date/ Time Comments White Blood Count 4.3 10^3/uL 4.3-11.0 05/19/2016 4:40am 05/19/2016 5: 19am Red Blood Count 3.67 10^6/uL L 4.35-5.85 05/19/2016 4:40am 05/19/2016 5: 19am Hemoglobin 11.2 G/DL L 11.5-16.0 05/19/2016 4:40am 05/19/2016 5:19am Hematocrit 34 % L 35-52 05/19/2016 4:40am 05/19/2016 5:19am Mean Corpuscular Volume 92 FL 80-99 05/19/2016 4:40am 05/19/2016 5: 19am Mean Corpuscular Hemoglobin 31 PG 25-34 05/19/2016 4:40am 05/19/2016 5: 19am Mean Corpuscular Hemoglobin Concent 33 G/DL 32-36 05/19/2016 4:40am 08/2016 5:19am Red Cell Distribution Width 14.4 % 10.0-14.5 05/19/2016 4:40am 2016 5:19am Platelet Count 219 10^3/uL 130-400 05/19/2016 4:40am 05/19/2016 5:19am Mean Platelet Volume 10.6 FL H 7.4-10.4 05/19/2016 4:40am 05/19/2016 5: 19am Neutrophils (%) (Auto) 40 % L 42-75 05/19/2016 4:40am 05/19/2016 5:19am Lymphocytes (%) (Auto) 49 % H 12-44 05/19/2016 4:40am 05/19/2016 5:19am Monocytes (%) (Auto) 8 % 0-12 05/19/2016 4:40am 05/19/2016 5:19am Eosinophils (%) (Auto) 3 % 0-10 05/19/2016 4:40am 05/19/2016 5:19am Basophils (%) (Auto) 1 % 0-10 05/19/2016 4:40am 05/19/2016 5:19am Neutrophils # (Auto) 1.7 X 10^3 L 1.8-7.8 05/19/2016 4:40am 05/19/2016 5: 19am Lymphocytes # (Auto) 2.1 X 10^3 1.0-4.0 05/19/2016 4:40am 05/19/2016 5: 19am Monocytes # (Auto) 0.3 X 10^3 0.0-1.0 05/19/2016 4:40am 05/19/2016 5: 19am Eosinophils # (Auto) 0.1 10^3/uL 0.0-0.3 05/19/2016 4:40am 05/19/2016 5 :19am Basophils # (Auto) 0.0 10^3/uL 0.0-0.1 05/19/2016 4:40am 05/19/2016 5: 19am Prothrombin Time 12.9 SEC 12.2-14.7 05/16/2016 10:25am 05/16/2016 10: 51am INR Comment 1.0 0.8-1.4 05/16/2016 10:25am 05/16/2016 10:51am INTERPRETIVE DATA SUGGESTED THERAPEUTIC RANGE FOR INR'S: VENOUS THROMBOSIS, PULMONARY EMBOLISM, OR PREVENTION OF SYSTEMIC EMBOLISM (EG. IN ATRIAL FIBRILLATION): 2.0 - 3.0 MECHANICAL PROSTHETIC HEART VALVES: 2.5 - 3.5* *NOTE: INR'S UP TO 4.5 MAY BE NECESSARY IN SELECTED GROUPS OF HIGH RISK PATIENTS. [employer] [employer]ANS CONSENSUS CONFERENCE ON ANTITHROMBOTIC THERAPY (2000). Sodium Level 142 MMOL/L 135-145 05/18/2016 3:30am 05/18/2016 4:42am Potassium Level 4.0 MMOL/L 3.6-5.0 05/18/2016 3:30am 05/18/2016 4:42am Chloride Level 111 MMOL/L H 98-107 05/18/2016 3:30am 05/18/2016 4:42am Carbon Dioxide Level 23 MMOL/L 21-32 05/18/2016 3:30am 05/18/2016 4: 42am Anion Gap 8 MMOL/L 5-14 05/18/2016 3:30am 05/18/2016 4:42am Blood Urea Nitrogen 16 MG/DL 7-18 05/18/2016 3:30am 05/18/2016 4:42am Creatinine 0.69 MG/DL 0.60-1.30 05/18/2016 3:30am 05/18/2016 4:42am BUN/Creatinine Ratio 23 05/18/2016 3:30am 05/18/2016 4:42am Estimat Glomerular Filtration Rate > 60 05/18/2016 3:30am 2016 4:42am GFR INTERPRETIVE DATA UNITS FOR ESTIMATED GFR (eGFR): mL/min/1.73 M2 REFERENCE RANGE FOR ESTIMATED GFR (eGFR) eGFR NORMAL eGFR >60 MODERATELY DECREASED eGFR 30-59 SEVERLY DECREASED eGFR 15-29 KIDNEY FAILURE <15 (OR DIALYSIS) Glucose Level 77 MG/DL 70-105 05/18/2016 3:30am 05/18/2016 4:42am Calcium Level 7.7 MG/DL L 8.5-10.1 05/18/2016 3:30am 05/18/2016 4:42am Phosphorus Level 2.9 MG/DL 2.3-4.7 05/18/2016 3:3005/18/2016 4:42am Magnesium Level 2.4 MG/DL 1.8-2.4 05/18/2016 3:30am 05/18/2016 4:42am Total Bilirubin 0.6 MG/DL 0.1-1.0 05/17/2016 4:08am 05/17/2016 5:22am Alkaline Phosphatase 52 U/L 40-136 05/17/2016 4:08am 05/17/2016 5:22am Aspartate Amino Transf (AST/SGOT) 19 U/L 5-34 05/17/2016 4:08am 2016 5:22am Alanine Aminotransferase (ALT/SGPT) 24 U/L 0-55 05/17/2016 4:08am 05/17 5:22am Total Protein 5.1 G/DL L 6.4-8.2 05/17/2016 4:08am 05/17/2016 5:22am Albumin 3.0 G/DL L 3.2-4.5 05/17/2016 4:08am 05/17/2016 5:22am Procedures Procedure Status Date Provider(s) DESTRUCTION OF DUODENUM, ENDO Completed 05/16/16 ARCHIE KIM MD EXCISION OF STOMACH, ENDO Completed 05/17/16 ARCHIE KIM MD Tracing only of electrocardiogram Completed 05/19/16 ARCHIE KIM MD Encounters Encounter Location Arrival/Admit Date Discharge/Depart Date Attending Provider Departed Clinic [facility] 05/23/16 7:14am 05/23/16 10: 55am ARCHIE KIM MD Discharged Inpatient [facility] 05/16/16 12:50pm 2:55pm ARCHIE KIM MD
--- OUTSIDE RECORDS SUMMARY | 2016-05-26 10:57 | XMS REPORT | Continuity of Care Document ---
Author Author [facility] Organization [facility] Address Unknown Phone Unavailable Care Team Providers Care Energy Projects Lead Name Role Phone NO, LOCAL PHYSICIAN PCP Unavailable Insurance Providers Payer Name Policy Number Subscriber Name [facility] [id number] Temi Moran 19 Self / Same As [...] - 99.5) 05/19/2016 12:00pm Temperature (Calculated Celsius) 36.45493 degrees C (36.4 - 37.5) 05/19/2016 12:00pm [...] 2.00 inches 05/23/2016 10:36am Height (Calculated Centimeters) 157.764188 cm 05/23/2016 10:36am Weight (Pounds) 159 pounds 05/23/2016 10:36am Weight (Ounces) 8.0 oz 05/23/2016 10:36am Weight (Calculated Grams) 06300.98 gm 05/23/2016 10:36am Weight (Calculated Kilograms) 72.358571 kilograms 05/23/2016 10:36am Calculated BMI 29.2 05/23/2016 [...] SELECTED GROUPS OF HIGH RISK PATIENTS. [employer] [place] [employer] CONSENSUS CONFERENCE ON [...] Discharge/Depart Date Attending Provider Departed Clinic [facility] 05/23/16 7:14am 05/23/16 10: 55am ARCHIE KIM MD Discharged Inpatient [facility] 05/16/16 12:50pm 2:55pm ARCHIE KIM MD
--- NOTE | 2016-05-26 11:40 | Pre-Op Note & Conscious Sedat ---
Pre-Operative Progress Note H&P Reviewed The H&P was reviewed, patient examined and no changes noted. Date H&P Reviewed: May 26, 2016 Time H&P Reviewed: 11:39 Pre-Op Diagnosis: duodenal ulcers. Rectal bleeding Conscious Sedation Pre-Proced ASA Class: 2 Airway Mallampati Classification: ([place] appropriate class) I. II. III, IV Lungs Heart ASA score ASA 1: a normal healthy patient ASA 2: a patient with a mild systemic disease (mid diabetes, controlled hypertension, obesity ASA 3: a patient with a severe systemic disease that limits activity (angina , COPD, prior Myocardial infarction) ASA 4: a patient with an incapacitating disease that is a constant threat to life (CHF, renal failure) ASA 5: a moribund patient not expected to survive 24 hrs. (ruptured aneurysm) ASA 6: a declared brain patient whose organs are being harvested. For emergent operations, add the letter E after the classification Grade 2 Sedation Plan: Discussed options with patient/fam Note The patient is an appropriate candidate to undergo the planned procedure, sedation, and anesthesia. The patient immediately re-assessed prior to indication. ARCHIE KIM MD May 26, 2016 11:40 am
--- NOTE | 2016-05-26 14:37 | Progress Note-Post Operative ---
Post-Operative Progess Note Pre-Operative Diagnosis duodenal ulcers. Rectal bleeding Post-Operative Diagnosis EGD: healed duodenal ulcers and gastric erosions. Colonoscopy: very few, nonbleeding sigmoid diverticula Post-Op Procedure Note Date of Procedure: May 26, 2016 Name of Procedure: EGD and colonoscopy Anesthesia Type sedation ARCHIE KIM MD May 26, 2016 2:37 pm
--- NOTE | 2016-05-26 14:39 | Discharge Inst-Simple/Standard ---
Discharge Inst-Standard Discharge Medications New, Converted or Re-Newed RX: Other Patient Instructions/Follow Up Plan of Care/Instructions/FU: please schedule a GI bleeding scan as an outpatient possibly this week Activity as Tolerated: Yes Discharge Diet: No Restrictions ARCHIE KIM MD May 26, 2016 2:39 pm
[2016-05-27 01:26] VITALS: BP 128/84
--- NOTE | 2016-05-27 13:25 | PROCEDURE REPORT ---
PROCEDURE PHYSICIAN: ARCHIE KIM DATE OF PROCEDURE: 05/26/2016 PROCEDURE: 1. Upper GI endoscopy. 2. Colonoscopy. INDICATION FOR THE PROCEDURE: This lady suffered upper GI bleeding due to multiple duodenal ulcers and erosions, being managed by successful endoscopic sclerotherapy. She reported further melena and therefore she was brought back for GI endoscopy. During the immediate pre-endoscopy evaluation, she was found to be anemic with a hemoglobin of 6.1. Therefore blood transfusion was commenced. Informed consent was obtained after reviewing the procedures in detail. DESCRIPTION OF PROCEDURE: 1. UPPER GI ENDOSCOPY: She was placed in left lateral decubitus position and her vital signs were monitored. Conscious sedation was achieved using propofol infusion by our [employer]USSIAN LANGUAGE PROFESSOR. The flexible gastroscope was then introduced down the esophagus, past the stomach, into the proximal duodenum. FINDINGS: ESOPHAGUS: Quite tortuous, without any source of bleeding. Specifically, there were no varices. STOMACH: Previously noted antral erosions had healed. In addition, 3 mm lesion seen in the fundus was also not observed. Very few, linear erosions without any bleeding were found at the proximal greater curvature. DUODENUM: Previously noted ulcers. The scope was then withdrawn in preparation for colonoscopy IMPRESSION: 1. Previous GI bleeding. 2. Currently no identifiable lesions found. 2. COLONOSCOPY: Digital rectal examination was unremarkable. The colonoscope was then introduced into the rectum and advanced to the cecum. The scope was then withdrawn slowly and the mucosa examined in a systematic fashion. FINDINGS: 1. Very few, nonbleeding diverticula. 2. No polyps were found. She tolerated the procedures well and was taken back to the nursing area in a stable condition. IMPRESSION: Chronic and recurrent GI bleeding. Will complete the transfusion today and obtain tagged red blood cell scan as an outpatient. Job ID: [id number] Dictated Date: 05/26/2016 14:36:14 Clinical Esthetician Date: 05/27/2016 13:16:39 / bharti URRUTIA
== END | disposition home or self-care (01) ==
LOC: ENDO 10:51
PROVIDERS: ATTEND Surgery
DX: K57.30 Diverticulosis of large intestine without perforation or abscess without bleeding (principal); K92.1 Melena; D64.9 Anemia, unspecified
CPT/HCPCS: 36415; 36430; 85018; 86850; 86900; 86901; 86920

== ENCOUNTER → 2016-05-30 | Outpatient (CLI) | payer BC ==
[~2016-05-30] MED LIST changes: +CATHETER FLUSH 10 ML SYR IV PRN; -EPINEPHrine INJECTION 1 MG/ML AMP ONE; -FLUMAZENIL (ROMAZICON) 0.1 MG/ML 5 ML VIAL INJ PRN; +HEParin (CENTRAL IV FLUSH) 500 UNIT/5 ML SYR ONE; -HURRICAINE EXT TUBE (BENZOCAINE) XX PRN; -MIDAZOLAM 2 MG/2 ML (VERSED) VIAL IVP PRN; -MIDAZOLAM 2 MG/2 ML (VERSED) VIAL ONE; -NALOXONE 0.4 MG/ML 1 ML (NARCAN) VIAL IVP PRN; -NS IV 1000 ML 1,000 ML IV PRN; -NS IV 500 ML 500 ML IV PRN; -NS IV 500 ML 500 ML ONE; -fentaNYL INJECTION 100 MCG/2 ML AMP IVP PRN; -proPOfol 200 MG/20 ML (DIPRIVAN) VIAL IV ONE
--- OUTSIDE RECORDS SUMMARY | 2016-05-30 09:16 | XMS REPORT | Continuity of Care Document ---
Author Author [facility] Organization [facility] Address Unknown Phone Unavailable Care Team Providers Care Vending Stand Supervisor Name Role Phone NO, LOCAL PHYSICIAN PCP Unavailable Insurance Providers Payer Name Policy Number Subscriber Name Relationship [facility] [id number] Temi Moran 19 Self / Same As [...] - 99.5) 05/19/2016 12:00pm Temperature (Calculated Celsius) 36.94050 degrees C (36.4 - 37.5) 05/19/2016 12:00pm [...] 2.00 inches 05/23/2016 10:36am Height (Calculated Centimeters) 157.155794 cm 05/23/2016 10:36am Weight (Pounds) 159 pounds 05/23/2016 10:36am Weight (Ounces) 8.0 oz 05/23/2016 10:36am Weight (Calculated Grams) 31390.98 gm 05/23/2016 10:36am Weight (Calculated Kilograms) 72.745211 kilograms 05/23/2016 10:36am Calculated BMI 29.2 05/23/2016 [...] SELECTED GROUPS OF HIGH RISK PATIENTS. [employer] [employer] CONSENSUS CONFERENCE ON [...] Discharge/Depart Date Attending Provider Departed Clinic [facility] 05/23/16 7:14am 05/23/16 10: 55am ARCHIE KIM MD Discharged Inpatient [facility] 05/16/16 12:50pm 2:55pm ARCHIE KIM MD
--- NOTE | 2016-05-30 11:51 | Diagnostic Imaging Report ---
GI bleeding scan. INDICATION: Anemia. GI bleeding After the intravenous administration of 30 mCi of technetium 99m tagged RBCs, images over the stomach with counts performed. FINDINGS: There is uptake in the vasculature and in the urinary bladder and cardiac activity seen with the no radiotracer accumulation in bowel loops to suggest the GI bleeding over the time of the exam of 1.5 hours. IMPRESSION: No scintigraphic evidence of GI bleeding demonstrated during this time of exam. Dictated by: Dictated on workstation # [id number]
== END ==
LOC: CARD 09:12
PROVIDERS: ATTEND Surgery
DX: D64.9 Anemia, unspecified (principal); K92.2 Gastrointestinal hemorrhage, unspecified
CPT/HCPCS: 78278